=== PATIENT | female | born 1965 | race Caucasian/White ===

== ENCOUNTER 2016-10-23 05:40 | Day surgery (SDC) | payer OTHER, BC ==
[2016-10-23] MEDS ORDERED: Lactated Ringers 1,000 ML IV SCH (06:00)
[2016-10-23] MEDS ORDERED: DIPRIVAN 200 MG/20 ML IV ONE (09:00)
[2016-10-23] MEDS ORDERED: Versed 2 MG/2 ML Injection IV ONE (09:00)
[2016-10-23 09:20] VITALS: BP 132/68; PULSE 73; O2SAT 98
--- NOTE | 2016-10-23 11:37 | OP ---
SURGERY DATE/TIME: 10/23/2016 0759 PREOPERATIVE DIAGNOSIS: Screening exam. POSTOPERATIVE DIAGNOSIS: Normal colon. PROCEDURE: Colonoscopy. SURGEON: Dr. Calabrese. ANESTHESIA: Medications given by anesthesia department. HISTORY: The patient is a 51 year-old white female presenting now for her first screening colonoscopy. She was appraised of the risks of the procedure including the risk of perforation, phlebitis, untoward reaction to medication, bleeding and missed lesions. The patient verbalized her understanding and desired to have the procedure performed. DESCRIPTION OF PROCEDURE: The patient was given the medications by the anesthesia department. She had continuous pulse oximetry, ECG monitoring, intermittent blood pressure monitoring, and tidal CO2 monitoring during the examination. She was placed in the left lateral decubitus position. A digital rectal examination was performed and revealed normal anal sphincter tone and no masses. The flexible Olympus pediatric colonoscope was used to intubate the rectum. A view of the colon was developed sequentially to the cecum. Upon insertion and withdrawal, including a retroflex view in the rectum, no mucosal lesions were encountered. The scope was removed from the patient who tolerated the procedure well and was sent back to OP recovery in good condition. The prep was noted to be fair to good.
== END 2016-10-23 09:24 | disposition home or self-care (01) ==
LOC: SDC 05:40
PROVIDERS: ATTEND Family Medicine
PROC: 0DJD8ZZ Inspection of Lower Intestinal Tract, Via Natural or Artificial Opening Endoscopic (ICD-10-PCS; principal; 2016-10-23)
DX: Z12.11 Encounter for screening for malignant neoplasm of colon (principal); E03.9 Hypothyroidism, unspecified; I10 Essential (primary) hypertension; I25.10 Atherosclerotic heart disease of native coronary artery without angina pectoris; E78.5 Hyperlipidemia, unspecified
CPT/HCPCS: 00810; 36415; 80061; 83721; 84450; J2250; J2704

== ENCOUNTER 2023-01-09 10:07 | Emergency (ER) | payer BC ==
[2023-01-09 10:22] VITALS: TEMP 97.4
--- NOTE | 2023-01-09 10:40 | ERPHSYRPT ---
- History of Present Illness Time Seen by Provider: 01/09/23 10:30 Historian: patient Exam Limitations: no limitations Patient Subjective Stated Complaint: pain in her top right back that radiates to her chest since Sunday Triage Nursing Assessment: Pt brought to the ER by her , hypertensive, rates pain as 6/10 in the back, pt thought that she was having muscle spasms but now is not sure due to the pain radiating to the chest, pulses normal, skin n/w/d, no difficulty with breathing, cardiac hx, doesn't appear to be in any distress Physician History: Patient is a 57-year-old female presents to our ED for evaluation of upper back pain radiating to her chest. Symptoms started Sunday 4 days ago. Patient call ed her primary care doctor today however was unable to get into see him. Patient went to [facility] and was referred to our ED. Patient's symptoms are progressive. No associated nausea vomiting or diaphoresis. No shortness of breath. Patient has a history of hypothyroidism. 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 Patient states she is otherwise healthy. No significant past medical history otherwise. Patient weighs 278 pounds. Patient had (1) 81 mg aspirin prior to arrival. Patient voices no other complaints or concerns at this time. Portions of this note were created with voice recognition technology. There may be grammatical, spelling, punctuation or sound alike errors Timing/Duration: day(s) (4 days ago) Activities at Onset: none Quality: aching Location: back (Back pain radiates to her chest) Severity of Pain-Max: moderate Severity of Pain-Current: mild Modifying Factors: Improves With: nothing Associated Symptoms: denies symptoms Prior Chest Pain/Cardiac Workup: no prior chest pain Nitro Today/Relief: no nitro taken today Aspirin Treatment Today: 81 mg x 4 Allergies/Adverse Reactions: No Known Drug Allergies Allergy (Verified 01/09/23 10:22) Home Medications: Aspirin 81 mg PO DAILY 10/17/16 [History] Levothyroxine Sodium 88 Mcg [Synthroid 88 Mcg] 100 mcg PO DAILY 10/17/16 [History] Metoprolol Tartrate 25 mg [Lopressor 25MG Tab] 25 mg PO BID 10/17/16 [History] Multivitamin [Daily Multivitamin] 1 each PO DAILY 10/17/16 [History] lisinopriL [Zestril] 5 mg PO DAILY 10/17/16 [History] Hx Influenza Vaccination/Date Given: No Hx Pneumococcal Vaccination/Date Given: Yes Travel Risk - International Travel Have you traveled outside of the country in past 3 weeks: No - Coronavirus Screening Are you exhibiting any of the following symptoms?: No Close contact with a COVID-19 positive Pt in past 14-21 Days: No - Vaccine Status Have you recieved a Covid-19 vaccination: Yes Scrum Coach: Moderna - Vaccination Dates Date of 2cond Vaccination (if applicable): 2020 - Review of Systems Constitutional: No Symptoms, No Fever, No Chills Eyes: No Symptoms Ears, Nose, & Throat: No Symptoms Respiratory: No Symptoms, No Cough, No Dyspnea Cardiac: No Symptoms, No Chest Pain, No Edema, No Syncope Abdominal/Gastrointestinal: No Symptoms, No Abdominal Pain, No Nausea, No Vomiting, No Diarrhea Genitourinary Symptoms: No Symptoms, No Dysuria Musculoskeletal: No Symptoms, No Back Pain, No Neck Pain Skin: No Symptoms, No Rash Neurological: No Symptoms, No Dizziness, No Focal Weakness, No Sensory Changes Psychological: No Symptoms Endocrine: No Symptoms Hematologic/Lymphatic: No Symptoms Immunological/Allergic: No Symptoms All Other Systems: Reviewed and Negative - Past Medical History Pertinent Past Medical History: Yes Neurological History: No Pertinent History ENT History: No Pertinent History Cardiac History: Hypertension Respiratory History: Other Endocrine Medical History: Hypothyroidism Musculoskeletal History: Osteoarthritis GI Medical History: No Pertinent History History: No Pertinent History Psycho-Social History: No Pertinent History Female Reproductive Disorders: Abnormal Uterine Bleeding Other Medical History: Open heart surgery 2016 new valve and root system. - Past Surgical History Past Surgical History: Yes Neuro Surgical History: No Pertinent History Cardiac: CABG, Cardiac Catheterization Respiratory: No Pertinent History Gastrointestinal: No Pertinent History Genitourinary: No Pertinent History Musculoskeletal: No Pertinent History Female Surgical History: Dilation & Curettage, Section Other Surgical History: states "valve replacement", T&A, x 2, - Social History Smoking Status: Never smoker Exposure to second hand smoke: No Drug Use: none Patient Lives Alone: No - Nursing Vital Signs Nursing Vital Signs: Initial Vital Signs Temperature 97.4 F 01/09/23 10:13 Pulse Rate 78 01/09/23 10:13 Respiratory Rate 19 01/09/23 10:13 Blood Pressure 148/80 01/09/23 10:13 O2 Sat by Pulse Oximetry 97 01/09/23 10:13 Pain Scale Pain Intensity [] 6 Pain Intensity 6 - Physical Exam General Appearance: no apparent distress, alert Eye Exam: PERRL/EOMI, eyes nml inspection Ears, Nose, Throat Exam: normal ENT inspection, moist mucous membranes Neck Exam: normal inspection, non-tender, supple, full range of motion Respiratory Exam: normal breath sounds, lungs clear, airway intact, No respiratory distress Cardiovascular Exam: regular rate/rhythm, normal heart sounds, normal peripheral pulses Gastrointestinal/Abdomen Exam: soft, normal bowel sounds, No tenderness, No mass Back Exam: normal inspection, other (Palpation to the thoracic paraspinal on the right side reproduces patient's symptoms.), No CVA tenderness, No vertebral tenderness Extremity Exam: normal inspection, normal range of motion Neurologic Exam: alert, oriented x 3, cooperative, normal mood/affect, sensation nml, No motor deficits Skin Exam: normal color, warm, dry Lymphatic Exam: No adenopathy SpO2 Interpretation: normal SpO2: 97 O2 Delivery: Room Air - Course Nursing assessment & vital signs reviewed: Yes EKG Interpreted by Me: RATE (82), Sinus Rhythm, NORMAL AXIS, NORMAL INTERVALS - CT Exams Chest CT Interpretation: Tele-radiologist Report (No PE, lung granuloma, spine arthritis, fatty liver, gallstones, left renal cyst, spine arthritis) Ordered Tests: Active Orders 24 hr Category Date Time Status Control Systems Technician STAT Care 01/09/23 10:33 Active EKG-ER Only STAT Care 01/09/23 10:32 Active IV Insertion STAT Care 01/09/23 10:32 Active Pulse Oximetry (ED) STAT Care 01/09/23 10:32 Active CHEST WITH CONTRAST [CT] Stat Exams 01/09/23 11:35 Completed CBC W DIFF Stat Lab 01/09/23 10:45 Completed CMP Stat Lab 01/09/23 10:45 Completed D-DIMER QUANTITATIVE Stat Lab 01/09/23 10:45 Completed NT PRO BNPII Stat Lab 01/09/23 10:45 Completed TROPONIN Q4H Lab 01/09/23 10:45 Completed TROPONIN Q4H Lab 01/09/23 13:30 Completed TROPONIN Q4H Lab 01/09/23 18:45 Ordered Lab/Rad Data: Laboratory Result Diagrams 01/09/23 10:45 01/09/23 10:45 Laboratory Results 01/09/23 01/09/23 01/09/23 Range/Units 13:30 10:45 10:45 WBC (4.0-10.5) x10^3/uL RBC (4.1-5.4) x10^6/uL Hgb (12.0-16.0) g/dL Hct (35-47) % MCV (78-100) fL MCH (26-32) pg MCHC (32-36) g/dL RDW (11.5-14.0) % Plt Count (150-450) x10^3/uL MPV (7.5-11.0) fL Gran % (36.0-66.0) % Immature Gran % (Auto) (0.00-0.4) % Nucleat RBC Rel Count (0.00-0.1) % Eos # (Auto) (0-0.5) x10^3/uL Immature Gran # (Auto) (0.00-0.03) x10^3u/L Absolute Lymphs (auto) (1.0-4.6) x10^3/uL Absolute Monos (auto) (0.0-1.3) x10^3/uL Absolute Nucleated RBC (0.00-0.01) x10^3u/L Lymphocytes % (24.0-44.0) % Monocytes % (0.0-12.0) % Eosinophils % (0.00-5.0) % Basophils % (0.0-0.4) % Absolute Granulocytes (1.4-6.9) x10^3/uL Basophils # (0-0.4) x10^3/uL D-Dimer 0.90 H* (0.0-0.50) mg/L Sodium (137-145) mmol/L Potassium (3.5-5.1) mmol/L Chloride (98-107) mmol/L Carbon Dioxide (22-30) mmol/L Anion Gap (5-15) MEQ/L BUN (7-17) mg/dL Creatinine (0.52-1.04) mg/dL Estimated GFR ML/MIN Glucose (74-106) mg/dL Calcium (8.4-10.2) mg/dL Total Bilirubin (0.2-1.3) mg/dL AST (14-36) U/L ALT (0-35) U/L Alkaline Phosphatase (38-126) U/L Troponin I < 0.012 < 0.012 (0.000-0.034) ng/mL NT-Pro-B Natriuret Pep 402 (<300) pg/mL Serum Total Protein (6.3-8.2) g/dL Albumin (3.5-5.0) g/dL 01/09/23 01/09/23 Range/Units 10:45 10:45 WBC 7.9 (4.0-10.5) x10^3/uL RBC 4.87 (4.1-5.4) x10^6/uL Hgb 14.0 (12.0-16.0) g/dL Hct 43.3 (35-47) % MCV 88.9 (78-100) fL MCH 28.7 (26-32) pg MCHC 32.3 (32-36) g/dL RDW 12.7 (11.5-14.0) % Plt Count 302 (150-450) x10^3/uL MPV 9.0 (7.5-11.0) fL Gran % 60.8 (36.0-66.0) % Immature Gran % (Auto) 0.3 (0.00-0.4) % Nucleat RBC Rel Count 0.0 (0.00-0.1) % Eos # (Auto) 0.10 (0-0.5) x10^3/uL Immature Gran # (Auto) 0.02 (0.00-0.03) x10^3u/L Absolute Lymphs (auto) 2.24 (1.0-4.6) x10^3/uL Absolute Monos (auto) 0.68 (0.0-1.3) x10^3/uL Absolute Nucleated RBC 0.00 (0.00-0.01) x10^3u/L Lymphocytes % 28.2 (24.0-44.0) % Monocytes % 8.6 (0.0-12.0) % Eosinophils % 1.3 (0.00-5.0) % Basophils % 0.8 (0.0-0.4) % Absolute Granulocytes 4.83 (1.4-6.9) x10^3/uL Basophils # 0.06 (0-0.4) x10^3/uL D-Dimer (0.0-0.50) mg/L Sodium 140 (137-145) mmol/L Potassium 3.8 (3.5-5.1) mmol/L Chloride 106 (98-107) mmol/L Carbon Dioxide 30 (22-30) mmol/L Anion Gap 8.3 (5-15) MEQ/L BUN 13 (7-17) mg/dL Creatinine 0.75 (0.52-1.04) mg/dL Estimated GFR > 60.0 ML/MIN Glucose 111 H (74-106) mg/dL Calcium 9.2 (8.4-10.2) mg/dL Total Bilirubin 0.30 (0.2-1.3) mg/dL AST 26 (14-36) U/L ALT 23 (0-35) U/L Alkaline Phosphatase 82 (38-126) U/L Troponin I (0.000-0.034) ng/mL NT-Pro-B Natriuret Pep (<300) pg/mL Serum Total Protein 6.9 (6.3-8.2) g/dL Albumin 3.9 (3.5-5.0) g/dL - Progress Progress: improved Air Movement: good Progress Note: Patient is a 57-year-old female presents to our ED with a 4-day history of right upper back pain radiating to her chest. Physical exam significant for tenderness at the right thoracic paraspinal. Palpation reproduces her symptoms. No associated nausea vomiting or diaphoresis. No neck pain or arm pain. EKG revealed a normal sinus rhythm. CBC CMP essentially nonremarkable. BNP negative. D-dimer positive. CTA chest negative. Incidental fatty liver, and cholelithiasis. No cholecystitis. Patient's pain is intermittent. No active pain at the time of my evaluation. Patient declined pain medication. Pain typically occurs at rest. Possible muscle spasm. However in light of patient's cardiac risk factors we advised patient to follow-up with their tunnel worker for an outpatient stress test. Daughter at bedside. They voiced no other complaints or concerns at this time. Patient's heart score is 3. Portions of this note were created with voice recognition technology. There may be grammatical, spelling, punctuation or sound alike errors Complexity of problems addressed is moderate acute complicated No critical care time Complex of data reviewed and analyzed is moderate. Test ordered test reviewed. Findings were analyzed in clinic correlated with history and physical exam. Heart score is 3. Risk of major adverse coronary event is 0.9 to 1.7%. Risk of complication and or risk of morbidity/mortality of patient management is moderate. We will discharge home. Vital stable. Time spent in discharge patient is approximately 10 to 15 minutes. Plan of care established for shared decision making. Daughter at bedside. They agree to follow-up with patient's tunnel worker within 48 hours to arrange an outpatient stress test. No social determinants of health present impede follow-up. Portions of this note were created with voice recognition technology. There may be grammatical, spelling, punctuation or sound alike errors 01/09/23 14:41 Blood Culture(s) Obtained: No Antibiotics given: No Counseled pt/family regarding: lab results, diagnosis, rad results - Departure Departure Disposition: Home Clinical Impression: Lung granuloma, Arthritis of spine, Fatty liver, Gallstones, Renal cyst, left, Back pain Condition: Stable Critical Care Time: No Referrals: KRIS TRUONG [Primary Care Provider] - Follow up/PCP as directed Additional Instructions: Discharge/Care Plan RITA SUNGMODESTO was seen on 01/09/23 in the Emergency Room. The patient was counseled regarding Diagnosis,Lab results, Imaging studies, need for follow up and when to return to the Emergency Room. Prescriptions given: Discharge Note I have spoken with the patient and/or caregivers. I have explained the patient's condition, diagnosis and treatment plan based on the information available to me at this time. I have answered the patient's and/or caregiver's questions and addressed any concerns. The patient and/or caregivers have as good understanding of the patient's diagnosis, condition and treatment plan as can be expected at this point. The vital signs have been stable. The patient's condition is stable and appropriate for discharge from the emergency department. The patient will pursue further outpatient evaluation with the primary care physician or other designated or consulting physician as outlined in the discharge instructions. The patient and/or caregivers are agreeable to this plan of care and follow-up instructions have been explained in detail. The patient and/or caregivers have received these instruction. The patient/and or caregivers are aware that any significant change in condition or worsening of symptoms should prompt an immediate return to this or the closest emergency department or call 911.
[2023-01-09 10:50] LABS: Absolute Neutrophil Ct (ANC) 4.83 x10^3/uL (1.4-6.9); BASOPHIL % 0.8 % (0.0-0.4); Basophil (Absolute #) 0.06 x10^3/uL (0-0.4); Eosinophil % 1.3 % (0.00-5.0); Hematocrit 43.3 % (35-47); IMMATURE GRAN # 0.02 x10^3u/L (0.00-0.03); IMMATURE GRAN % 0.3 % (0.00-0.4); Lymphocyte (Absolute #) 2.24 x10^3/uL (1.0-4.6); Lymphocytes % 28.2 % (24.0-44.0); Mean Cell Volume 88.9 fL (78-100); Mean Corpuscular Hemoglobin 28.7 pg (26-32); Mean Corpuscular Hgb Concent. 32.3 g/dL (32-36); Monocyte (Absolute #) 0.68 x10^3/uL (0.0-1.3); Monocytes % 8.6 % (0.0-12.0); Neutrophil % 60.8 % (36.0-66.0); Platelet Count 302 x10^3/uL (150-450); Red Blood Count 4.87 x10^6/uL (4.1-5.4); Red Cell Distribution Width 12.7 % (11.5-14.0); White Blood Count 7.9 x10^3/uL (4.0-10.5)
[2023-01-09 11:11] LABS: ALBUMIN 3.9 g/dL (3.5-5.0); ALKALINE PHOSPHATASE 82 U/L (38-126); ANION GAP 8.3 MEQ/L (5-15); BLOOD UREA NITROGEN 13 mg/dL (7-17); CHLORIDE 106 mmol/L (98-107); Calcium 9.2 mg/dL (8.4-10.2); Carbon Dioxide 30 mmol/L (22-30); Creatinine 1 0.75 mg/dL (0.52-1.04); EST GLOMERULAR FILTRATION RATE > 60.0 ML/MIN; Glucose 111 mg/dL (74-106); Potassium 3.8 mmol/L (3.5-5.1); SGOT/AST 26 U/L (14-36); SGPT/ALT 23 U/L (0-35); SODIUM 140 mmol/L (137-145); Total Protein 6.9 g/dL (6.3-8.2)
[2023-01-09 11:19] LABS: NT PRO BNPII 402 pg/mL (<300); TROPONIN < 0.012 ng/mL (0.000-0.034)
--- NOTE | 2023-01-09 12:32 | XRAY ---
Indication: Chest pain 5 days. Elevated d-dimer. Multiple contiguous axial images obtained through the chest using 80 cc Isovue 370 contrast and PE protocol. Comparison: None Adequate opacification of the pulmonary arteries. Mild respiration artifact limits evaluation the more distal lobar and segmental branches. No obvious pulmonary embolus. Heart not enlarged with CABG. Aorta is normal course and caliber. Tiny subcarinal calcified nodes. No pathologic mediastinal/hilar lymphadenopathy. Lungs demonstrate minimal right middle and left lower lobe subsegmental atelectasis/scarring. Tiny right posterior gutter calcified granuloma. No suspicious pulmonary mass/nodule, infiltrate, effusion, or pneumothorax. Bony thorax intact with mild degenerative changes throughout the spine. Limited upper abdomen demonstrates fatty liver, 2 subcentimeter gallstones, and 1.2 cm left renal exophytic cyst. Impression: 1. Pulmonary embolus evaluation limited by respiration artifact. No obvious pulmonary embolus or acute cardiopulmonary abnormalities. 2. Incidental atelectasis/scarring, fatty liver, degenerative spondylosis, gallstones, left renal cyst, and old granulomatous disease.
[2023-01-09 14:31] VITALS: O2SAT 97
[2023-01-09 14:58] VITALS: BP 140/88; PULSE 78; RESP 15
== END 2023-01-09 15:03 | disposition home or self-care (01) ==
LOC: ED 10:07
DX: J84.10 Pulmonary fibrosis, unspecified (principal); M47.9 Spondylosis, unspecified; K76.0 Fatty (change of) liver, not elsewhere classified; K80.20 Calculus of gallbladder without cholecystitis without obstruction; N28.1 Cyst of kidney, acquired; M54.6 Pain in thoracic spine; R07.9 Chest pain, unspecified; I10 Essential (primary) hypertension; Z79.899 Other long term (current) drug therapy
CPT/HCPCS: 36000; 36415; 71260; 80053; 83880; 84484; 85025; 85379; 93005; 93041; 94760; 99284